=== PATIENT | female | born 1965 | race Two or more races ===

== ENCOUNTER 2018-01-27 15:54 | Emergency (ER) | payer MEDICAID ==
[~2018-01-27] VITALS: Ht 157.5 cm; Wt 81.6 kg
[2018-01-27 16:56] LABS: Basophils # (auto) 0.1 uL; Basophils % (auto) 0.9 % (0.0-2.0); Eosinophils # (auto) 0.1 uL; Hematocrit 38.8 % (36.0-46.0); Hemoglobin 13.3 g/dL (12.2-16.2); Lymphocytes # (auto) 1.9 uL; Lymphocytes % (auto) 32.8 % (10.0-50.0); Mean Corpuscular Hemoglobin 32.9 pg (28.0-32.0); Mean Corpuscular Hgb Conc. 34.2 g/dL (32.0-36.0); Mean Corpuscular Volume 96.2 fL (80.0-100.0); Monocytes # (auto) 0.3 uL; Monocytes % (auto) 5.6 % (0.0-12.0); Neutrophils # (auto) 3.4 uL; Neutrophils % (auto) 59.7 % (37.0-80.0); Nucleated Red Blood Cells % 0.1 %; Platelet Count (auto) 211 10^3/uL (140-450); Red Blood Cells 4.03 10^6/uL (4.0-5.20); Red Cell Distribution Width 13.3 % (11.8-14.3); White Blood Cell 5.8 10^3/uL (4.4-10.8)
[2018-01-27 17:00] LABS: Urine Bacteria NONE SEEN /hpf (None Seen); Urine Blood Negative /uL (Negative); Urine Mucus FEW (None Seen); Urine Specific Gravity 1.009 (1.001-1.035); Urine WBC 3 /hpf (0 - 5)
[2018-01-27 17:07] LABS: BUN/Creatinine Ratio 15.3; Calcium 8.7 mg/dL (8.5-10.1); Potassium 3.8 mmol/L (3.5-5.1)
[2018-01-27 17:09] LABS: Bilirubin, Total 0.7 mg/dL (0.2-1.0); Total Protein 8.1 g/dL (6.4-8.2)
[2018-01-27 18:28] LABS: Magnesium 2.2 mg/dL (1.6-2.6)
[2018-01-27 20:00] VITALS: BP 135/87
[2018-01-27] MEDS ORDERED: HYDROcodone-ACET 5/325MG TAB PO ONE (20:45)
== END 2018-01-27 20:45 | disposition home or self-care (01) ==
LOC: ER 15:58
DX: R07.9 Chest pain, unspecified (principal); R51 Headache; M79.89 Other specified soft tissue disorders
CPT/HCPCS: 36415; 70450; 71046; 80053; 81001; 83735; 84484; 85025; 85379; 93005; 93971; 94761

== ENCOUNTER 2020-02-29 01:29 | Emergency (ER) | payer MEDICAID ==
[~2020-02-29] VITALS: Ht 160 cm; Wt 86.2 kg
[2020-02-29 03:12] VITALS: BP 132/73
== END 2020-02-29 03:38 | disposition home or self-care (01) ==
LOC: EDBD 01:29 → ER 01:36
DX: I83.892 Varicose veins of left lower extremity with other complications (principal); I10 Essential (primary) hypertension

== ENCOUNTER 2021-02-22 15:29 | Emergency (ER) | payer MEDICAID ==
[~2021-02-22] VITALS: Ht 157.5 cm; Wt 90.7 kg
[2021-02-22 18:25] VITALS: BP 144/87
== END 2021-02-22 18:30 | disposition home or self-care (01) ==
LOC: ER 15:29
DX: I83.92 Asymptomatic varicose veins of left lower extremity (principal); I10 Essential (primary) hypertension

== ENCOUNTER 2021-11-13 20:02 | Emergency (ER) | payer MEDICAID ==
[~2021-11-13] VITALS: Ht 157.5 cm; Wt 81.6 kg
[2021-11-13 20:26] VITALS: BP 141/81
[2021-11-13] MEDS ORDERED: AMOX-277 PO (22:56)
[2021-11-13] MEDS ORDERED: ACETAMINOPHEN 325 MG TAB PO ONE (23:00)
[2021-11-13] MEDS ORDERED: TETANUS-DIPTH-ACEL PERTUSSIS 0.5ML SYR Tdap IM ONE (23:15)
== END 2021-11-13 23:16 | disposition home or self-care (01) ==
LOC: ER 20:04
DX: S81.831A Puncture wound without foreign body, right lower leg, initial encounter (principal); I10 Essential (primary) hypertension; W54.0XXA Bitten by dog, initial encounter; Y93.89 Activity, other specified; Y92.89 Other specified places as the place of occurrence of the external cause; Y99.8 Other external cause status
CPT/HCPCS: 90471; 90715

== ENCOUNTER 2023-06-21 09:28 | Emergency (ER) | payer MEDICAID ==
[~2023-06-21] VITALS: Ht 157.5 cm; Wt 92.9 kg
[~2023-06-21 09:28] MED LIST: AMOX875T4 PO
[2023-06-21 09:35] VITALS: BP 107/72; RESP 18; O2SAT 97
[2023-06-21 10:44] LABS: Basophils # (auto) 0 10 ^3/uL (0-0.2); Basophils % (auto) 0.9 % (0.0-2.0); Eosinophils # (auto) 0.1 10 ^3/uL (0-0.8); Eosinophils % (auto) 2.8 % (0.0-7.0); Hematocrit 37.6 % (36.0-46.0); Hemoglobin 12.4 g/dL (12.2-16.2); Lymphocytes # (auto) 1.7 10 ^3/uL (0.4-5.4); Lymphocytes % (auto) 42.1 % (10.0-50.0); Mean Corpuscular Hemoglobin 31.6 pg (28.0-32.0); Mean Corpuscular Volume 95.8 fL (80.0-100.0); Monocytes # (auto) 0.2 10 ^3/uL (0-1.3); Monocytes % (auto) 5.7 % (0.0-12.0); Neutrophils % (auto) 48.5 % (37.0-80.0); Red Blood Cells 3.92 10^6/uL (4.0-5.20); Red Cell Distribution Width 13.5 % (11.8-14.3); White Blood Cell 4.1 10^3/uL (4.4-10.8)
[2023-06-21] MEDS ORDERED: SODIUM CHLORIDE 0.9% 1,000 ML IV ONE (10:45)
[2023-06-21 10:58] LABS: INR 1.08 (0.9-1.15); Partial Thromboplastin Time 31.1 SEC (24.5-34.5); Prothrombin Time 11.3 sec (9.3-11.8)
[2023-06-21 11:12] LABS: Alanine Aminotransferase 22 U/L (7-40); Albumin 4.8 g/dL (3.2-4.8); Alkaline Phosphatase 78 U/L (46-116); Anion Gap 6 (5-15); Aspartate Aminotransferase 15 U/L (13-40); BUN/Creatinine Ratio 13.9 (10.0-20.0); Bilirubin, Total 0.8 mg/dL (0.2-1.0); Blood Urea Nitrogen 10 mg/dL (9-23); Calcium 9.7 mg/dL (8.5-10.1); Carbon Dioxide 28 mmol/L (20-30); Chloride 107 mmol/L (98-107); Glucose 98 mg/dL (74-106); Sodium 141 mmol/L (136-145); Total Protein 7.5 g/dL (5.7-8.2)
[2023-06-21 11:18] LABS: Urine Bacteria NONE SEEN /hpf (None Seen); Urine Blood Negative /uL (Negative); Urine Clarity Clear (Clear); Urine Color Yellow (Yellow); Urine Mucus FEW (None Seen); Urine Protein, UAD Negative (Negative); Urine Specific Gravity 1.017 (1.001-1.035); Urine Urobilinogen Normal (Negative); Urine WBC 1 /hpf (0 - 5)
[2023-06-21 11:20] VITALS: PULSE 68
[2023-06-21] MEDS ORDERED: HYDR-4902 PO (13:16)
== END 2023-06-21 14:15 | disposition home or self-care (01) ==
LOC: ER 09:28
DX: I70.90 Unspecified atherosclerosis (principal); R51.9 Headache, unspecified; E11.9 Type 2 diabetes mellitus without complications; I10 Essential (primary) hypertension; Z98.890 Other specified postprocedural states; Z86.718 Personal history of other venous thrombosis and embolism; Z86.711 Personal history of pulmonary embolism; Z86.2 Personal history of diseases of the blood and blood-forming organs and certain disorders involving the immune mechanism
CPT/HCPCS: 36415; 70450; 71046; 80053; 81001; 85025; 85379; 85610; 85730; 93005; 96360; 99285; J7030

== ENCOUNTER 2024-02-19 08:36 | Emergency (ER) | payer MEDICAID ==
[~2024-02-19 08:36] MED LIST changes: +HYDR-4902 PO
[2024-02-19 09:21] LABS: Urine Bacteria None Seen /hpf (None Seen)
[2024-02-19 09:28] VITALS: BP 114/79; PULSE 80; RESP 16; TEMP 97.7; O2SAT 97
[2024-02-19 10:17] LABS: Urine Blood 1+ /uL (Negative); Urine Clarity Ex.Turbid (Clear); Urine Color Yellow (Yellow); Urine Mucus FEW (None Seen); Urine Protein, UAD 1+ (Negative); Urine Specific Gravity 1.022 (1.001-1.035); Urine Urobilinogen 2 mg/dL (Negative); Urine WBC 1010 /hpf (0 - 5); Urine pH 5.5 (5.0-9.0)
[2024-02-19] MEDS ORDERED: PHEN-922 PO (10:35)
[2024-02-19] MEDS ORDERED: BACDST PO (10:35)
[2024-02-19] MEDS: cefTRIAXone SOD 1,000 MG VL IM ONE (10:35)
[2024-02-19] MEDS: PHENAZOPYRIDINE HCL 100 MG TAB PO ONE (10:35)
== END 2024-02-19 11:08 | disposition home or self-care (01) ==
LOC: ER 08:36
DX: N39.0 Urinary tract infection, site not specified (principal); E11.9 Type 2 diabetes mellitus without complications; I10 Essential (primary) hypertension
CPT/HCPCS: 81001; 96372; 99283; J0696

== ENCOUNTER 2025-03-19 23:14 | Inpatient (IN) | payer MEDICAID ==
[~2025-03-19] VITALS: Ht 157.5 cm; Wt 86.8 kg
[~2025-03-19 23:14] MED LIST changes: +BACDST PO; +PHEN-922 PO
[2025-03-20] VITALS (8 sets, daily range): BP systolic 116–144; BP diastolic 71–94; PULSE 63–75; RESP 13–20; TEMP 97.6–97.9; O2SAT 96–100
--- NOTE | 2025-03-20 01:06 | ED.PDOC ---
History of Present Illness HPI Comments 59 y/o obese F presents with c/c of nonradiating, RLQ abdominal pain. Patient endorses on 3x day history of pain, which has been, progressively, worsening since initial, unprovoked and atraumatic onset. No modifiers. No reported recent ailments, sick contacts, spoiled food consumption, or pertinent GI history. Significant history of and LLE chronic DVT secondary to varicose veins. No reported nausea, vomiting, diarrhea, constipation, or further associated symptoms. Chief Complaint: Abdominal Pain Time Seen by MD: 00:00 Primary Care Provider: JULIA Allergies: Coded Allergies: No Known Drug Allergy (Verified Allergy, Unknown, 01/27/18) Home Meds Active Scripts Phenazopyridine HCl (Phenazopyridine Hydrochlo) 200 Mg Tab, 200 MG PO TID, #6 TAB Prov:ARIANNE AREVALO 02/19/24 Sulfamethoxazole W/Trimethopri (Bactrim Ds Tablet) 1 Tab Tb, 1 TAB PO BID for 10 Days, #20 TAB Prov:ARIANNE AREVALO 02/19/24 Hydrocodone-Acetaminophen (Hydrocodone Bitartrate/AC 5-325 mg) 1 Tab Tab, 1 TAB PO BID for 5 Days, #10 TAB Prov:CHUCK YEH MD 06/21/23 Amoxicillin & Pot Clavulanate (Amoxicillin/Potassium Cla) 875 Mg Tab, 1 TAB PO BID for 7 Days, #14 TAB 0 Refills Prov:GOMEZ HIGGINS 11/13/21 Mode of Arrival: Ambulatory Past Medical History PAST MEDICAL HISTORY: DM, HTN 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 Family History Family History: Reviewed,noncontributory to illness, No family hx of Cancer, No family hx of DM, No family hx of Heart blade, No family hx of HTN, No family hx ofKidney blade, No family hx of Liver blade, No family hx of Lung blade, No family hx of Stroke Social History Smoker: Non-Smoker Alcohol: Denies ETOH Use Drugs: Denies Drug Use Lives In: Home All Other Systems: Reviewed and Negative (Comprehensive systems review obtained and negative except for what is stated in the HPI.) Physical Exam General Appearance: Moderate Distress HEENT: Normal ENT Inspection, Pharynx Normal, TMs Normal Neck: Full Range of Motion, Non-Tender, Normal, Normal Inspection Respiratory: Chest Non-Tender, Lungs Clear, No Accessory Muscle Use, No Respiratory Distress, Normal Breath Sounds Cardiovascular: No Edema, No JVD, No Murmur, No Gallop, Normal Peripheral Pulses, Regular Rate/Rhythm Breast Exam: Deferred Gastrointestinal: No Organomegaly, Non Tender, No Pulsatile Mass, Normal Bowel Sounds, Soft Genitalia: Deferred Pelvic: Deferred Rectal: Deferred Extremities: No calf tenderness, Normal capillary refill, Normal inspection, Normal range of motion, Non-tender, No pedal edema Musculoskeletal : Apperance: Normal Neurologic: Alert, die set up worker II-XII nml as Tested, No Motor Deficits, Normal Affect, Normal Mood, No Sensory Deficits Cerebellar Function: NOT DONE Reflexes: NOT DONE Skin: Dry, Normal Color, Warm Peripheral Pulses: 3+ Radial (R), 3+ Radial (L) Lymphatic: No Adenopathy Was a procedure done? Was a procedure done?: No Differential Dx Considerations may include: viral syndrome, gastritis, gastroenteritis, GERD, cholelithiasis, cholecystitis, appendicitis, diverticulitis, PID, ovarian cyst/torsion, among others X-Ray, Labs, Meds, VS Vital Signs Date Time Temp Pulse Resp B/P (MAP) Pulse Ox O2 Delivery O2 Flow Rate FiO2 03/20/25 02:16 75 20 96 Room Air* 0 21 03/20/25 02:16 98.1 75 20 144/78 (100) 96 98.1 03/19/25 23:18 97.9 87 18 155/93 98 97.9 Lab Test 03/20/25 00:41 Range/Units White Blood Count 6.6 4.4-10.8 10^3/uL Red Blood Count 3.88 L 4.0-5.20 10^6/uL Hemoglobin 12.4 12.2-16.2 g/dL Hematocrit 36.7 36.0-46.0 % Mean Corpuscular Volume 94.6 80.0-100.0 fL Mean Corpuscular Hemoglobin 32.0 28.0-32.0 pg Mean Corpuscular Hemoglobin Concent 33.9 32.0-36.0 g/dL Red Cell Distribution Width 13.1 11.8-14.3 % Platelet Count 238 140-450 10^3/uL Mean Platelet Volume 7.6 6.9-10.8 fL Neutrophils (%) (Auto) 46.0 37.0-80.0 % Lymphocytes (%) (Auto) 44.3 10.0-50.0 % Monocytes (%) (Auto) 6.6 0.0-12.0 % Eosinophils (%) (Auto) 2.4 0.0-7.0 % Basophils (%) (Auto) 0.7 0.0-2.0 % Neutrophils # (Auto) 3.0 1.6-8.6 10 ^3/uL Lymphocytes # (Auto) 2.9 0.4-5.4 10 ^3/uL Monocytes # (Auto) 0.4 0-1.3 10 ^3/uL Eosinophils # (Auto) 0.2 0-0.8 10 ^3/uL Basophils # (Auto) 0 0-0.2 10 ^3/uL Nucleated Red Blood Cells 0.0 % Sodium Level 142 136-145 mmol/L Potassium Level 4.3 3.5-5.1 mmol/L Chloride Level 104 98-107 mmol/L Carbon Dioxide Level 27 20-31 mmol/L Anion Gap 11 5-15 Blood Urea Nitrogen 15 9-23 mg/dL Creatinine 0.66 0.550-1.02 mg/dL Glomerular Filtration Rate Calc 100 >90 mL/min BUN/Creatinine Ratio 22.7 H 10.0-20.0 Serum Glucose 95 74-106 mg/dL Calcium Level 9.7 8.7-10.4 mg/dL Total Bilirubin 0.5 0.2-1.0 mg/dL Aspartate Amino Transferase (AST) 18 13-40 U/L Alanine Aminotransferase (ALT) 16 7-40 U/L Alkaline Phosphatase 82 46-116 U/L Total Protein 7.7 5.7-8.2 g/dL Albumin 4.7 3.2-4.8 g/dL Patient alert. Came in because of abdominal pain. Vitals stable. Answering questions. Continues to have abdominal pain. Establish intravenous access. Was given fluids. Blood pressure slightly elevated. Explained to the patient. Continue to monitor. Time of 1ST Reevaluation: 00:30 Reevaluation 1ST: Unchanged Patient Education/Counseling: Diagnosis, Treatment Family Education/Counseling: No Family Present SEPSIS Sepsis Screen Date sepsis recognized/suspect: Mar 19, 2025 Time Sepsis recognized/suspect: 2321 Recent Procedure: No On Antibiotic Therapy: No Respiratory Rate >20: No Heart Rate >90: No Temp<36 C (96.8 F) or >38.3 C: No SBP <90 or MAP <65 mmHG: No New Acute Mental Status Change: No Is the patient on CPAP, BIPAP,: No Physician Orders Urinalysis (03/20/25 00:01) Ct Ab Pel Wo Con-No Oral Or Iv (03/20/25 00:01) Vital Signs Date Time Temp Pulse Resp B/P (MAP) Pulse Ox O2 Delivery O2 Flow Rate FiO2 03/20/25 02:16 75 20 96 Room Air* 0 21 03/20/25 02:16 98.1 75 20 144/78 (100) 96 98.1 03/19/25 23:18 97.9 87 18 155/93 98 97.9 Laboratory Tests Test 03/20/25 00:41 White Blood Count 6.6 10^3/uL (4.4-10.8) Departure 1 Departure Time of Disposition: 01:13 Impression: Primary Impression: Acute abdominal pain Additional Impression: Kidney stone Disposition: ADMITTED INPATIENT Admit to: Med Surg Condition: Guarded Critical Care Note Critical Care Time?: No Stability Stability form required: No Heart Score Heart Score: Heart Score Response (Comments) Value History N/A 0 EKG N/A 0 Age N/A 0 Risk Factors N/A 0 Troponin N/A 0 Total 0 I personally scribed for AUBRIE SHAFER MD ([email or web address]) on 03/20/25 at 01:06. Electronically submitted by John Lujan ([email or web address]). AUBRIE SHAFER MD Mar 20, 2025 01:06
[2025-03-20 01:11] LABS: Hematocrit 36.7 % (36.0-46.0); Hemoglobin 12.4 g/dL (12.2-16.2); Mean Corpuscular Hemoglobin 32.0 pg (28.0-32.0); Mean Corpuscular Volume 94.6 fL (80.0-100.0); Nucleated Red Blood Cells % 0.0 %
[2025-03-20 01:29] LABS: Alanine Aminotransferase 16 U/L (7-40); Albumin 4.7 g/dL (3.2-4.8); Alkaline Phosphatase 82 U/L (46-116); Anion Gap 11 (5-15); BUN/Creatinine Ratio 22.7 (10.0-20.0); Blood Urea Nitrogen 15 mg/dL (9-23); Calcium 9.7 mg/dL (8.7-10.4); Carbon Dioxide 27 mmol/L (20-31); Chloride 104 mmol/L (98-107); Glucose 95 mg/dL (74-106); Potassium 4.3 mmol/L (3.5-5.1); Sodium 142 mmol/L (136-145); Total Protein 7.7 g/dL (5.7-8.2)
[2025-03-20 01:30] LABS: Bilirubin, Total 0.5 mg/dL (0.2-1.0)
--- NOTE | 2025-03-20 02:25 | DVH ---
Exam: CT CT AB PEL WO CON-NO ORAL OR IV History: colitis Comparison Study: None Technique: Multidetector spiral CT of the abdomen was performed from lung bases to pubic symphysis. I maging was performed without IV contrast. Axial, coronal and sagittal multiplanar reformats were obta ined from the axial data set by the technologist. Radiation Dose : 1. Abdomen/Pelvis: CTDIvol 15.0 mGy, DLP 888.4 mGy*cm. Findings: Evaluation of solid organs is limited due to lack of intravenous contrast use. Lower Chest: No acute findings. Liver: Unremarkable. Gallbladder and Biliary Tree: Unremarkable Pancreas: Unremarkable. Spleen: Unremarkable. Adrenal Glands: Unremarkable. Kidneys/Ureters: No obstruction. Punctate bilateral upper renal pole calcifications. Bladder: No wall thickening. Trace intraluminal gas. Pelvic Organs: Unremarkable Bowel: Normal caliber without wall thickening. No evidence of appendicitis. Descending and sigmoid co lonic diverticulosis without diverticulitis. Vasculature: Mild atherosclerosis. Lymphadenopathy: No obvious adenopathy. Peritoneum: No ascites, free air, or fluid collection. Abdominal Wall: Periumbilical subcutaneous stranding likely represents medication injections. Promine nt superficial varices of the lower pelvic wall. Musculoskeletal: No acute findings. Mild spondylosis. IMPRESSION: 1. No acute abdominopelvic abnormality. 2. Colonic diverticulosis without diverticulitis. 3. Nonobstructing renal calcifications. Radiation optimization: All CT scans at this facility use at least one of these dose optimization kishor hniques: automated exposure control mA and/or kV adjustment per patient size (includes targeted exam s where dose is matched to clinical indication) or iterative reconstruction.
[2025-03-20] MEDS ORDERED: ONDANSETRON HCL 4 MG/2 ML VIAL IV PRN (05:15)
[2025-03-20] MEDS ORDERED: ACETAMINOPHEN 325 MG TAB PO PRN (05:15)
--- NOTE | 2025-03-20 05:38 | DVHHP2 ---
History of Present Illness Reason for Visit: Acute abdominal pain History of Present Illness The patient is a 59-year-old female morbidly obese with past medical history of diabetes mellitus and hypertension who presented to [facility] ED with complaint of abdominal pain. Patient reports she has been experiencing right lower quadrant abdominal pain for the past 3 days, rating 7/10 numeric scale, nonradiating, getting worse that prompted this visit. Patient was seen and evaluated in the ED, laboratory data shows WBC 6.6, platelets 238, sodium 142, potassium 4.3, BUN 15, creatinine 0.66, glucose 95, calcium 9.7, blood pressure 148/78, heart rate 76, temperature 98.3 F, O2 saturation 99% on room air. Abdomen/pelvis CT showed no acute abdominopelvic abnormality, colonic diverticulosis without diverticulitis. Please see medication orders section in the computer. On my assessment, patient denies abdominal pain at this moment, no diarrhea, nausea, vomiting, no fever, no chills. Patient was admitted for further evaluation and medical management. Past Medical History DM, HTN Past Surgical History Family History Reviewed, noncontributory to the management of this case. Past Social History The patient lives at home, denies smoking, alcohol or illicit drugs abuse. Review of Systems Constitutional: No: Fever, Chills, Sweats, Weakness, Malaise, Other Eyes: No: Pain, Vision change, Conjunctivae inflammation, Eyelid inflammation, Other, Redness ENT: No: Ear pain, Ear discharge, Nose pain, Nose discharge, Nose congestion, Mouth pain, Mouth swelling, Throat pain, Throat swelling, Other Respiratory: No: Cough, Dry, Shortness of breath, SOB with excertion, Wheezing, Hemoptysis, Pleuritic Pain, Sputum, Wheezing, Other Cardiovascular: No: Chest Pain, Palpitations, Orthopnea, Paroxysmal Noc. Dyspnea, Edema, Lt Headedness, Other Gastrointestinal: Abdominal Pain; No: Nausea, Vomiting, Diarrhea, Constipation, Melena, Hematochezia, Other Genitourinary: No Dysuria, No Frequency, No Incontinence, No Hematuria, No Retention, No Other Musculoskeletal: No: other, neck pain, shoulder pain, arm pain, back pain, hand pain, leg pain, foot pain Skin: No: Rash, Lesions, Jaundice, Bruising, Other Neurological: No: Weakness, Numbness, Incoordination, Change in speech, Confusion, Seizures, Other Allergies: Coded Allergies: No Known Drug Allergy (Verified Allergy, Unknown, 01/27/18) Medications Current Medications Medications Dose Ordered Sig/Rob Route Start Time Stop Time Status Last Admin Dose Admin Sodium Chloride 10 ml Q8HR IV 03/20/25 06:00 Acetaminophen/ Hydrocodone Bitart 1 tab Q4HP PRN PO 03/20/25 05:15 Ondansetron HCl 4 mg Q4HP PRN IV 03/20/25 05:15 Docusate Sodium 100 mg BIDPRN PRN PO 03/20/25 05:15 Acetaminophen 650 mg Q6HP PRN PO 03/20/25 05:15 Nitroglycerin 0.4 mg Q5MINP PRN SL 03/20/25 05:45 UNV Morphine Sulfate 2 mg Q30M PRN IV 03/20/25 05:45 UNV Exam Vital Signs Vital Signs Date Time Temp Pulse Resp B/P (MAP) Pulse Ox O2 Delivery O2 Flow Rate FiO2 03/20/25 05:00 98.3 76 20 140/90 (107) 99 98.3 03/20/25 05:00 Room Air 03/20/25 02:16 0 21 General Appearance: Alert, Oriented X3, Cooperative, No acute distress HEENT: Atraumatic, PERRLA, EOMI, Mucous membr. moist/pink Respiratory: Normal air movement Cardiovascular: Regular rate, Normal S1, Normal S2, No murmurs Abdominal: Normal bowel sounds, Soft, No hepatospenomegaly, No masses, Other (Reports tenderness) Extremities: No clubbing, No cyanosis, No edema, Normal pulses, No tenderness/swelling Skin: No rashes, No breakdown, No significant lesion Neuro: Normal gait, Normal speech, Strength at 5/5 X4 ext, Normal tone, Sensation intact, Cranial nerves 3-12 NL, Reflexes 2+ Psych/Mental Status: Mental status NL, Mood NL Labs/Xrays Labs Test 03/20/25 00:41 Range/Units White Blood Count 6.6 4.4-10.8 10^3/uL Red Blood Count 3.88 L 4.0-5.20 10^6/uL Hemoglobin 12.4 12.2-16.2 g/dL Hematocrit 36.7 36.0-46.0 % Mean Corpuscular Volume 94.6 80.0-100.0 fL Mean Corpuscular Hemoglobin 32.0 28.0-32.0 pg Mean Corpuscular Hemoglobin Concent 33.9 32.0-36.0 g/dL Red Cell Distribution Width 13.1 11.8-14.3 % Platelet Count 238 140-450 10^3/uL Mean Platelet Volume 7.6 6.9-10.8 fL Neutrophils (%) (Auto) 46.0 37.0-80.0 % Lymphocytes (%) (Auto) 44.3 10.0-50.0 % Monocytes (%) (Auto) 6.6 0.0-12.0 % Eosinophils (%) (Auto) 2.4 0.0-7.0 % Basophils (%) (Auto) 0.7 0.0-2.0 % Neutrophils # (Auto) 3.0 1.6-8.6 10 ^3/uL Lymphocytes # (Auto) 2.9 0.4-5.4 10 ^3/uL Monocytes # (Auto) 0.4 0-1.3 10 ^3/uL Eosinophils # (Auto) 0.2 0-0.8 10 ^3/uL Basophils # (Auto) 0 0-0.2 10 ^3/uL Nucleated Red Blood Cells 0.0 % Sodium Level 142 136-145 mmol/L Potassium Level 4.3 3.5-5.1 mmol/L Chloride Level 104 98-107 mmol/L Carbon Dioxide Level 27 20-31 mmol/L Anion Gap 11 5-15 Blood Urea Nitrogen 15 9-23 mg/dL Creatinine 0.66 0.550-1.02 mg/dL Glomerular Filtration Rate Calc 100 >90 mL/min BUN/Creatinine Ratio 22.7 H 10.0-20.0 Serum Glucose 95 74-106 mg/dL Calcium Level 9.7 8.7-10.4 mg/dL Total Bilirubin 0.5 0.2-1.0 mg/dL Aspartate Amino Transferase (AST) 18 13-40 U/L Alanine Aminotransferase (ALT) 16 7-40 U/L Alkaline Phosphatase 82 46-116 U/L Total Protein 7.7 5.7-8.2 g/dL Albumin 4.7 3.2-4.8 g/dL PATIENT: KAISER VAZQUEZ ACCT: [id number] UNIT: [id number] : 1965 LOC: ER ROOM / BED: / AGE / SEX: 59 / F ADM STATUS: REG ER SERVICE 0001 ORDERING PHYSICIAN: AUBRIE SHAFER MD PROCEDURE(s): ABPL - CT AB PEL WO CON-NO ORAL OR IV REASON: colitis ORDER NUMBER(s): [id number], ACCESSION NUMBER(s): [id number] Exam: CT CT AB PEL WO CON-NO ORAL OR IV History: colitis Comparison Study: None Technique: Multidetector spiral CT of the abdomen was performed from lung bases to pubic symphysis. Imaging was performed without IV contrast. Axial, coronal and sagittal multiplanar reformats were obtained from the axial data set by the technologist. Radiation Dose: 1. Abdomen/Pelvis: CTDIvol 15.0 mGy, DLP 888.4 mGy*cm. Findings: Evaluation of solid organs is limited due to lack of intravenous contrast use. Lower Chest: No acute findings. Liver: Unremarkable. Gallbladder and Biliary Tree: Unremarkable Pancreas: Unremarkable. Spleen: Unremarkable. Adrenal Glands: Unremarkable. Kidneys/Ureters: No obstruction. Punctate bilateral upper renal pole calcifications. Bladder: No wall thickening. Trace intraluminal gas. Pelvic Organs: Unremarkable Bowel: Normal caliber without wall thickening. No evidence of appendicitis. Descending and sigmoid colonic diverticulosis without diverticulitis. Vasculature: Mild atherosclerosis. Lymphadenopathy: No obvious adenopathy. Peritoneum: No ascites, free air, or fluid collection. Abdominal Wall: Periumbilical subcutaneous stranding likely represents medication injections. Prominent superficial varices of the lower pelvic wall. Musculoskeletal: No acute findings. Mild spondylosis. IMPRESSION: 1. No acute abdominopelvic abnormality. 2. Colonic diverticulosis without diverticulitis. 3. Nonobstructing renal calcifications. SEPSIS Sepsis Screen Date sepsis recognized/suspect: Mar 20, 2025 Time Sepsis recognized/suspect: 219 Recent Procedure: No On Antibiotic Therapy: No Respiratory Rate >20: No Heart Rate >90: No Temp<36 C (96.8 F) or >38.3 C: No SBP <90 or MAP <65 mmHG: No New Acute Mental Status Change: No Is the patient on CPAP, BIPAP,: No Physician Orders Urinalysis (03/20/25 00:01) Ct Ab Pel Wo Con-No Oral Or Iv (03/20/25 00:01) Complete Blood Count (03/20/25 05:08) Comprehensive Metabolic Panel (03/20/25 05:08) Allergies (03/20/25 05:08) Code Status (03/20/25 05:08) Sodium Chloride Lock (Saline Lock Ns) (03/20/25 06:00) Oxygen Per Hour (03/20/25 05:08) Hydrocodone-Acet 5/325mg Tab ([place] (03/20/25 05:15) Ondansetron Hcl (Zofran) (03/20/25 05:15) Docusate Sodium Capsule (Colace Capsule) (03/20/25 05:15) Complete Blood Count (03/21/25 04:00) Comprehensive Metabolic Panel (03/21/25 04:00) Condition: Serious (03/20/25 05:08) Acetaminophen Tablet (Tylenol Tablet) (03/20/25 05:15) Clear Liq Diet (03/20/25 Breakfast) Bedrest With Bathroom Privileg (03/20/25 05:08) Sequential Compression Device (03/20/25 ) Admit (03/20/25 05:35) Nitroglycerin Sublingual (Ntrostat Subli (03/20/25 05:45) Morphine Sulfate Injection (03/20/25 05:45) Notify Of Changes From Base (03/20/25 05:35) Emergency Dysrhythmia Protocol (03/20/25 05:35) Oxygen By Nasal Cannula (03/20/25 05:35) Vital Signs Date Time Temp Pulse Resp B/P (MAP) Pulse Ox O2 Delivery O2 Flow Rate FiO2 03/20/25 05:00 98.3 76 20 140/90 (107) 99 98.3 03/20/25 05:00 71 20 99 Room Air 03/20/25 02:16 75 20 96 Room Air* 0 21 03/20/25 02:16 98.1 75 20 144/78 (100) 96 98.1 03/19/25 23:18 97.9 87 18 155/93 98 97.9 Laboratory Tests Test 03/20/25 00:41 White Blood Count 6.6 10^3/uL (4.4-10.8) Assessment/Plan Assessment/Plan Acute abdominal pain Kidney stone Plan 1. Admit to med surge unit 2. Breathing treatment 3. Pain control management 4. Management of fluids and electrolytes 5. Consultation for hospitalist 6. Diagnostic tests abdomen/pelvis CT 7. DVT prophylaxis on SCDs 8. Repeat labs CBC, CMP in a.m. 9. Continue with current medical management 10. Treatment plan discussed with patient and RN. Patient verbalized understanding. Plan discussed with: Patient, Other (RN) My Orders Orders - NARINDER IRELAND DNP Procedure Category Date Status Time Complete Blood Count LAB 03/20/25 Logged 05:08 Comprehensive LAB 03/20/25 Logged Metabolic Panel 05:08 Allergies SERA 03/20/25 In Process 05:08 Code Status CODE 03/20/25 Transmitted 05:08 Sodium Chloride Lock PHA 03/20/25 In Process (Saline Lock Ns) 06:00 Oxygen Per Hour RT 03/20/25 Transmitted 05:08 Hydrocodone-Acet PHA 03/20/25 In Process 5/325mg Tab ([place]ova 05:15 Ondansetron Hcl PHA 03/20/25 In Process (Zofran) 05:15 Docusate Sodium PHA 03/20/25 In Process Capsule (Colace 05:15 Complete Blood Count LAB 03/21/25 Verified 04:00 Comprehensive LAB 03/21/25 Verified Metabolic Panel 04:00 Condition: Serious SERA 03/20/25 In Process 05:08 Acetaminophen Tablet PHA 03/20/25 In Process (Tylenol Tablet) 05:15 Clear Liq Diet DIET 03/20/25 Transmitted Breakfast Bedrest With Bathroom SERA 03/20/25 In Process Privileg 05:08 Sequential SERA 03/20/25 In Process Compression Device Admit ADMIT 03/20/25 Transmitted 05:35 Nitroglycerin PHA 03/20/25 Transmitted Sublingual (Ntrostat 05:45 Morphine Sulfate PHA 03/20/25 Transmitted Injection 05:45 Notify Md Of Changes SERA 03/20/25 Transmitted From Base 05:35 Emergency Dysrhythmia SERA 03/20/25 Transmitted Protocol 05:35 Oxygen By Nasal RT 03/20/25 Transmitted Cannula 05:35 Problem List: (1) Acute abdominal pain (2) Kidney stone Date of Service: Mar 20, 2025 Billing Provider: NARINDER IRELAND DNP Common Visit Codes: [id number] INP/OBS CARE (HIGH) NARINDER IRELAND DNP Mar 20, 2025 05:38
[2025-03-20] MEDS ORDERED: NITROGLYCERIN 0.4 MG SL TAB SL PRN (05:45)
[2025-03-20] MEDS ORDERED: MORPHINE SULFATE INJ 2 MG/ml SYRG IV PRN (05:45)
[2025-03-20 05:59] LABS: Hematocrit 38.0 % (36.0-46.0); Hemoglobin 13.0 g/dL (12.2-16.2); Mean Corpuscular Hemoglobin 32.3 pg (28.0-32.0); Mean Corpuscular Volume 94.7 fL (80.0-100.0); Nucleated Red Blood Cells % 0.0 %
[2025-03-20] MEDS: SODIUM CHLOR 0.9% PF (SALINE LOCK) 10ML VIAL/SYR IV SCH (06:02)
[2025-03-20 06:12] LABS: Alanine Aminotransferase 17 U/L (7-40); Alkaline Phosphatase 87 U/L (46-116); Anion Gap 10 (5-15); Blood Urea Nitrogen 13 mg/dL (9-23); Calcium 9.6 mg/dL (8.7-10.4); Carbon Dioxide 28 mmol/L (20-31); Chloride 104 mmol/L (98-107); Glucose 99 mg/dL (74-106); Potassium 3.8 mmol/L (3.5-5.1); Sodium 142 mmol/L (136-145); Total Protein 8.2 g/dL (5.7-8.2)
[2025-03-20 06:13] LABS: BUN/Creatinine Ratio 20.6 (10.0-20.0); Bilirubin, Total 0.9 mg/dL (0.2-1.0)
[2025-03-20 06:17] LABS: Albumin 5.0 g/dL (3.2-4.8)
[2025-03-20 07:15] LABS: Urine Protein, UAD Negative (Negative)
[2025-03-20] MEDS: HYDROcodone-ACET 5/325MG TAB PO PRN (09:05)
[2025-03-20] MEDS ORDERED: APIX5TAB PO (10:44)
[2025-03-20] MEDS ORDERED: ATOR40TA52 PO (10:44)
[2025-03-20] MEDS ORDERED: METF-371 PO (10:44)
--- NOTE | 2025-03-20 12:10 | DVHPN2 ---
Subjective Patient continues to have right lower quadrant pain Reviewed: Care Plan, H&P, Labs, Medications Changes from previous H/P or p: No Changes General: Per HPI Objective Vitals Vital Signs Date Time Temp Pulse Resp B/P (MAP) Pulse Ox O2 Delivery O2 Flow Rate FiO2 03/20/25 08:51 97.6 74 18 134/79 (97) 98 97.6 03/20/25 08:05 Room Air* 0 21 General Appearance: Alert, Oriented X3, Cooperative, mild distress HEENT: Atraumatic, PERRLA Cardiovascular: Normal S1, Normal S2 Back: Flank Tenderness, Midline Tenderness Musculoskeletal: Normal sensory function, Normal motor function Neuro: Normal gait, Normal speech Skin: Dry, Intact Psych/Mental Status: Mental status NL, Mood NL Medications Current Medications Medications Dose Ordered Sig/Rob Route Start Time Stop Time Status Last Admin Dose Admin Sodium Chloride 10 ml Q8HR IV 03/20/25 06:00 03/20/25 06:02 10 ML Acetaminophen/ Hydrocodone Bitart 1 tab Q4HP PRN PO 03/20/25 05:15 03/20/25 09:05 1 TAB Ondansetron HCl 4 mg Q4HP PRN IV 03/20/25 05:15 Docusate Sodium 100 mg BIDPRN PRN PO 03/20/25 05:15 Acetaminophen 650 mg Q6HP PRN PO 03/20/25 05:15 Nitroglycerin 0.4 mg Q5MINP PRN SL 03/20/25 05:45 Morphine Sulfate 2 mg Q30M PRN IV 03/20/25 05:45 Laboratory Results Laboratory Tests 03/20/25 05:32 Chemistry Test 03/20/25 00:41 03/20/25 05:32 Albumin 4.7 g/dL (3.2-4.8) 5.0 g/dL (3.2-4.8) H Calcium Level 9.7 mg/dL (8.7-10.4) 9.6 mg/dL (8.7-10.4) Total Protein 7.7 g/dL (5.7-8.2) 8.2 g/dL (5.7-8.2) LFT Test 03/20/25 00:41 03/20/25 05:32 Alanine Aminotransferase (ALT) 16 U/L (7-40) 17 U/L (7-40) Alkaline Phosphatase 82 U/L (46-116) 87 U/L (46-116) Aspartate Amino Transferase (AST) 18 U/L (13-40) 17 U/L (13-40) Total Bilirubin 0.5 mg/dL (0.2-1.0) 0.9 mg/dL (0.2-1.0) Urinalysis Test 03/20/25 05:15 Urine Color Light-yellow (Yellow) Urine Clarity Clear (Clear) Urine pH 6.0 (5.0-9.0) Urine Specific [place] 1.013 (1.001-1.035) Urine Protein Negative (Negative) Urine Ketones Negative (Negative) Urine Blood Negative /uL (Negative) Urine Nitrite Negative (Negative) Urine Bilirubin Negative (Negative) Urine Urobilinogen Normal mg/dL (Negative) Urine Leukocyte Esterase Negative /uL (Negative) Urine RBC <1 /hpf (0 - 4) Urine Microscopic WBC < 1 /HPF (0-5) Urine Squamous Epithelial Cells Few /hpf (<5) Urine Bacteria None seen /hpf (None Seen) Urine Glucose Normal mg/dL (Normal) Labs and/or images reviewed: Labs reviewed by me, Image(s) reviewed by me Assessment/Plan Assessment/Plan Impression: -probable gastroenteritis -nephrolithiasis, nonobstructive -obesity -primary hypertension -diabetes mellitus Plan: -IV fluids -start antibiotic therapy with Flagyl -regular insulin sliding scale -pain management -reassess for discharge in a.m. Total time spent with patient discussing and formulating plan of care: 35 minutes. This medical document was created using an electronic medical record system with [employer] dictation system. Although this document has been carefully reviewed, there may still be some phonetic and typographical errors. These areas are purely typographical due to imperfections of the software programs, and do not reflect any compromise in the patient's medical care. Plan discussed with: Patient, Other (Rn) My Orders Orders - WILSON GOODEN NP Procedure Category Date Status Time NS PHA 03/20/25 Verified 12:15 Metronidazole Ivpb PHA 03/20/25 Verified Flagyl 14:00 Date of Service: Mar 20, 2025 Billing Provider: WILSON GOODEN NP Common Visit Codes: [id number] INP/OBS CARE(HIGH) WILSON GOODEN NP Mar 20, 2025 12:09
[2025-03-20] MEDS ORDERED: DEXTROSE (50%) 50ML SYRG IV PRN (12:15)
[2025-03-20] MEDS: SODIUM CHLORIDE 0.9% 1,000 ML IV SCH (12:34)
[2025-03-20] MEDS: InsuLIN REG 1unit/0.01ml Soln (100units/ml) SC SCH (17:00)
[2025-03-20] MEDS: ACCU-CHEK COMFORT CURVE STRIP VI SCH (17:05)
[2025-03-21] VITALS (8 sets, daily range): BP systolic 120–141; BP diastolic 82–94; PULSE 59–75; RESP 15–18; TEMP 97.6–98.5; O2SAT 96–99
[2025-03-21 08:01] LABS: Hematocrit 38.2 % (36.0-46.0); Hemoglobin 13.0 g/dL (12.2-16.2); Mean Corpuscular Hemoglobin 32.6 pg (28.0-32.0); Mean Corpuscular Volume 95.8 fL (80.0-100.0); Nucleated Red Blood Cells % 0.2 %
[2025-03-21 08:05] LABS: Alanine Aminotransferase 10 U/L (7-40); Alkaline Phosphatase 79 U/L (46-116); Anion Gap 11 (5-15); BUN/Creatinine Ratio 10.3 (10.0-20.0); Calcium 9.2 mg/dL (8.7-10.4); Carbon Dioxide 24 mmol/L (20-31); Chloride 106 mmol/L (98-107); Glucose 86 mg/dL (74-106); Potassium 4.1 mmol/L (3.5-5.1); Sodium 141 mmol/L (136-145); Total Protein 7.4 g/dL (5.7-8.2)
[2025-03-21 08:06] LABS: Albumin 4.4 g/dL (3.2-4.8); Bilirubin, Total 1.5 mg/dL (0.2-1.0); Blood Urea Nitrogen 9 mg/dL (9-23)
--- NOTE | 2025-03-21 13:28 | DVHPN2 ---
Subjective Patient continues to have right lower quadrant pain Reviewed: Care Plan, H&P, Labs, Medications Changes from previous H/P or p: No Changes General: Per HPI Eyes: No Pain, No Vision change, No Conjunctivae inflammation, No Eyelid inflammation, No Other, No Redness ENT: No Ear pain, No Ear discharge, No Nose pain, No Nose discharge, No Nose congestion, No Mouth pain, No Mouth swelling, No Throat pain, No Throat swelling, No Other Cardiovascular: No Chest Pain, No Palpitations, No Orthopnea, No Paroxysmal Noc. Dyspnea, No Edema, No Lt Headedness, No Other Respiratory: No Cough, No Dry, No Shortness of breath, No SOB with excertion, No Wheezing, No Hemoptysis, No Pleuritic Pain, No Sputum, No Other Gastrointestinal: No Nausea, No Vomiting; Abdominal Pain; No Diarrhea, No Constipation, No Melena, No Hematochezia, No Other Genitourinary: No Dysuria, No Frequency, No Incontinence, No Hematuria, No Retention, No Other Musculoskeletal: No other, No neck pain, No shoulder pain, No arm pain, No back pain, No hand pain, No leg pain, No foot pain Skin: No Rash, No Lesions, No Jaundice, No Bruising, No Other Objective Vitals Vital Signs Date Time Temp Pulse Resp B/P (MAP) Pulse Ox O2 Delivery O2 Flow Rate FiO2 03/21/25 12:48 98.4 59 16 140/94 (109) 99 98.4 03/21/25 07:30 Room Air* 0 21 Intake/Output Intake and Output 03/21/25 07:00 Intake Total 1450 ml Balance 1450 ml Intake Oral 1150 ml IV Total 300 ml # Voids 4 General Appearance: Alert, Oriented X3, Cooperative, mild distress HEENT: Atraumatic, PERRLA Cardiovascular: Normal S1, Normal S2 Abdomen: Normal bowel sounds, Soft, Other (Right lower Quadrant pain) Back: Flank Tenderness, Midline Tenderness Musculoskeletal: Normal sensory function, Normal motor function Neuro: Normal gait, Normal speech Skin: Dry, Intact Psych/Mental Status: Mental status NL, Mood NL Medications Current Medications Medications Dose Ordered Sig/Rob Route Start Time Stop Time Status Last Admin Dose Admin Sodium Chloride 10 ml Q8HR IV 03/20/25 06:00 03/21/25 05:35 10 ML Acetaminophen/ Hydrocodone Bitart 1 tab Q4HP PRN PO 03/20/25 05:15 03/21/25 11:29 1 TAB Ondansetron HCl 4 mg Q4HP PRN IV 03/20/25 05:15 Docusate Sodium 100 mg BIDPRN PRN PO 03/20/25 05:15 Acetaminophen 650 mg Q6HP PRN PO 03/20/25 05:15 Nitroglycerin 0.4 mg Q5MINP PRN SL 03/20/25 05:45 Morphine Sulfate 2 mg Q30M PRN IV 03/20/25 05:45 Sodium Chloride 1,000 ml @ 75 mls/hr [id number] IV 03/20/25 12:15 03/20/25 12:34 75 MLS/HR Metronidazole 100 ml @ 100 mls/hr Q8HR IV 03/20/25 14:00 03/21/25 05:35 100 MLS/HR Diagnostic Test (Pha) 1 strip ACHS 03/20/25 17:00 03/21/25 06:25 1 STRIP Insulin Human Regular ACHS SC 03/20/25 17:00 Dextrose 50 ml UD PRN IV 03/20/25 12:15 Laboratory Results Laboratory Tests 03/21/25 06:26 Chemistry Test 03/21/25 06:26 Albumin 4.4 g/dL (3.2-4.8) Calcium Level 9.2 mg/dL (8.7-10.4) Total Protein 7.4 g/dL (5.7-8.2) LFT Test 03/21/25 06:26 Alanine Aminotransferase (ALT) 10 U/L (7-40) Alkaline Phosphatase 79 U/L (46-116) Aspartate Amino Transferase (AST) 26 U/L (13-40) Total Bilirubin 1.5 mg/dL (0.2-1.0) H Urinalysis Test 03/20/25 05:15 Urine Color Light-yellow (Yellow) Urine Clarity Clear (Clear) Urine pH 6.0 (5.0-9.0) Urine Specific [place] 1.013 (1.001-1.035) Urine Protein Negative (Negative) Urine Ketones Negative (Negative) Urine Blood Negative /uL (Negative) Urine Nitrite Negative (Negative) Urine Bilirubin Negative (Negative) Urine Urobilinogen Normal mg/dL (Negative) Urine Leukocyte Esterase Negative /uL (Negative) Urine RBC <1 /hpf (0 - 4) Urine Microscopic WBC < 1 /HPF (0-5) Urine Squamous Epithelial Cells Few /hpf (<5) Urine Bacteria None seen /hpf (None Seen) Urine Glucose Normal mg/dL (Normal) Labs and/or images reviewed: Labs reviewed by me, Image(s) reviewed by me Assessment/Plan Assessment/Plan Impression: -probable gastroenteritis -nephrolithiasis, nonobstructive -obesity -primary hypertension -diabetes mellitus Plan: Events: Patient continues to have right lower quadrant pain. -IV fluids -GI consultation -antibiotic therapy with Flagyl -regular insulin sliding scale -pain management -Ultrasound of RLQ Total time spent with patient discussing and formulating plan of care: 35 minutes. This medical document was created using an electronic medical record system with [employer] dictation system. Although this document has been carefully reviewed, there may still be some phonetic and typographical errors. These areas are purely typographical due to imperfections of the software programs, and do not reflect any compromise in the patient's medical care. Plan discussed with: Patient, Other (RN) My Orders Orders - WILSON GOODEN NP Procedure Category Date Status Time * Gi D[facility] [employer] CONS 03/21/25 Transmitted 13:03 Right Lower Quad US 03/21/25 Logged 13:03 Date of Service: Mar 21, 2025 Billing Provider: WILSON GOODEN NP Common Visit Codes: [id number] INP/OBS CARE(HIGH) WILSON GOODEN NP Mar 21, 2025 13:28
--- NOTE | 2025-03-21 13:58 | DVH ---
INDICATION: rule ot appendicitis TECHNIQUE: Graded compression technique along with Multiple real-time sonographic images were obtain ed for evaluation of the right lower quadrant. FINDINGS: The appendix was not visualized. No free fluid or lymph nodes are seen on this exam. IMPRESSION: 1.Nonvisualization of the appendix, thus cannot exclude appendicitis.
[2025-03-21] MEDS: DOCUSATE SOD 100 MG CAP PO PRN (17:26)
[2025-03-22] VITALS (7 sets, daily range): BP systolic 125–148; BP diastolic 70–91; PULSE 61–72; RESP 18–20; TEMP 97.9–98.3; O2SAT 97–99
--- NOTE | 2025-03-22 13:36 | DVHPN2 ---
Subjective Patient continues to have right lower quadrant pain Reviewed: Care Plan, H&P, Labs, Medications Changes from previous H/P or p: No Changes General: Per HPI Eyes: No Pain, No Vision change, No Conjunctivae inflammation, No Eyelid inflammation, No Other, No Redness ENT: No Ear pain, No Ear discharge, No Nose pain, No Nose discharge, No Nose congestion, No Mouth pain, No Mouth swelling, No Throat pain, No Throat swelling, No Other Cardiovascular: No Chest Pain, No Palpitations, No Orthopnea, No Paroxysmal Noc. Dyspnea, No Edema, No Lt Headedness, No Other Respiratory: No Cough, No Dry, No Shortness of breath, No SOB with excertion, No Wheezing, No Hemoptysis, No Pleuritic Pain, No Sputum, No Other Gastrointestinal: No Nausea, No Vomiting; Abdominal Pain; No Diarrhea, No Constipation, No Melena, No Hematochezia, No Other Genitourinary: No Dysuria, No Frequency, No Incontinence, No Hematuria, No Retention, No Other Musculoskeletal: No other, No neck pain, No shoulder pain, No arm pain, No back pain, No hand pain, No leg pain, No foot pain Skin: No Rash, No Lesions, No Jaundice, No Bruising, No Other Objective Vitals Vital Signs Date Time Temp Pulse Resp B/P (MAP) Pulse Ox O2 Delivery O2 Flow Rate FiO2 03/22/25 08:00 18 99 Room Air* 0 21 03/22/25 05:00 98.2 69 126/70 (88) 98.2 Intake/Output Intake and Output 03/22/25 07:00 Intake Total 2230 ml Balance 2230 ml Intake Oral 2130 ml IV Total 100 ml # Voids 6 General Appearance: Alert, Oriented X3, Cooperative, mild distress HEENT: Atraumatic, PERRLA Cardiovascular: Normal S1, Normal S2 Abdomen: Normal bowel sounds, Soft, Other (Right lower Quadrant pain) Back: Flank Tenderness, Midline Tenderness Musculoskeletal: Normal sensory function, Normal motor function Neuro: Normal gait, Normal speech Skin: Dry, Intact Psych/Mental Status: Mental status NL, Mood NL Medications Current Medications Medications Dose Ordered Sig/Rob Route Start Time Stop Time Status Last Admin Dose Admin Sodium Chloride 10 ml Q8HR IV 03/20/25 06:00 03/22/25 06:35 10 ML Acetaminophen/ Hydrocodone Bitart 1 tab Q4HP PRN PO 03/20/25 05:15 03/22/25 11:11 1 TAB Ondansetron HCl 4 mg Q4HP PRN IV 03/20/25 05:15 Docusate Sodium 100 mg BIDPRN PRN PO 03/20/25 05:15 03/21/25 17:26 100 MG Acetaminophen 650 mg Q6HP PRN PO 03/20/25 05:15 Nitroglycerin 0.4 mg Q5MINP PRN SL 03/20/25 05:45 Morphine Sulfate 2 mg Q30M PRN IV 03/20/25 05:45 Sodium Chloride 1,000 ml @ 75 mls/hr [id number] IV 03/20/25 12:15 03/22/25 06:35 75 MLS/HR Metronidazole 100 ml @ 100 mls/hr Q8HR IV 03/20/25 14:00 03/22/25 06:34 100 MLS/HR Diagnostic Test (Pha) 1 strip ACHS 03/20/25 17:00 03/22/25 06:35 1 STRIP Insulin Human Regular ACHS SC 03/20/25 17:00 Dextrose 50 ml UD PRN IV 03/20/25 12:15 Laboratory Results Laboratory Tests 03/21/25 06:26 Urinalysis Test 03/20/25 05:15 Urine Color Light-yellow (Yellow) Urine Clarity Clear (Clear) Urine pH 6.0 (5.0-9.0) Urine Specific [place] 1.013 (1.001-1.035) Urine Protein Negative (Negative) Urine Ketones Negative (Negative) Urine Blood Negative /uL (Negative) Urine Nitrite Negative (Negative) Urine Bilirubin Negative (Negative) Urine Urobilinogen Normal mg/dL (Negative) Urine Leukocyte Esterase Negative /uL (Negative) Urine RBC <1 /hpf (0 - 4) Urine Microscopic WBC < 1 /HPF (0-5) Urine Squamous Epithelial Cells Few /hpf (<5) Urine Bacteria None seen /hpf (None Seen) Urine Glucose Normal mg/dL (Normal) Labs and/or images reviewed: Labs reviewed by me, Image(s) reviewed by me Assessment/Plan Assessment/Plan Impression: -probable gastroenteritis -nephrolithiasis, nonobstructive -obesity -primary hypertension -diabetes mellitus -Hx of DVT Plan: Events: Patient continues to have right lower quadrant pain. -IV fluids -GI consultation: Recommendations appreciated -DVT study -antibiotic therapy with Flagyl -regular insulin sliding scale -pain management -Ultrasound of RLQ: unremarkable for Appendicitis Total time spent with patient discussing and formulating plan of care: 35 minutes. This medical document was created using an electronic medical record system with [employer] dictation system. Although this document has been carefully reviewed, there may still be some phonetic and typographical errors. These areas are purely typographical due to imperfections of the software programs, and do not reflect any compromise in the patient's medical care. Plan discussed with: Patient, Other (RN) My Orders Orders - WILSON GOODEN NP Procedure Category Date Status Time Enoxaparin Sodium PHA 03/23/25 Verified (Lovenox) 10:00 Bilat Lower Dvt US 03/22/25 Verified 13:22 Date of Service: Mar 22, 2025 Billing Provider: WILSON GOODEN NP Common Visit Codes: [id number] INP/OBS CARE(HIGH) WILSON GOODEN NP Mar 22, 2025 13:36
[2025-03-22] MEDS ORDERED: OMNIPAQUE 12mg/ml 500ml ORAL SOLUTION PO ONE (13:55)
--- NOTE | 2025-03-22 13:55 | DVHINCON2 ---
GI Consult Consult Note GI consult note Date of Consultation: 03/22/2025 Chief Complaint: Abdominal pain to lower quadrants Referring Physician: Alexa YOON H&P: 59-year-old Upper Sorbian speaking patient admitted with complains of right lower quadrant abdominal pain for one-week. Patient describes the pain as a constant tightness type pain. No nausea or vomiting. Denies melena or red blood in stool. No colonoscopy in past Patient has been taking home medication Eliquis by herself which she has at her bedside. Patient is also on Lovenox Past Medical History: DM , HTN Past Surgical History: Social History: NO smoking, drinking ETOH and use of illegal drugs. Family History: Noncontributory Review of Systems: Constitutional: no fever, chill, weight loss HEENT: no eye pain, no hearing loss, no oral lesion, no scleral icterus Heart: no chest pain, no chest pressure Lung: no cough, no dyspnea with exertion Abdomen: see HPI Physical exam: General: NAD, AAOX3 Chest: lung whitt clear to auscultation Heart: RRR, no murmur Abdomen:+ right lower quadrant tenderness to palpation, +BS Labs: Labs Test 03/22/25 11:04 03/21/25 06:26 03/20/25 05:32 03/20/25 05:15 Range/Units POC Glucose 110 H 70-106 mg/dl White Blood Count 4.5 4.4-10.8 10^3/uL Red Blood Count 3.99 L 4.0-5.20 10^6/uL Hemoglobin 13.0 12.2-16.2 g/dL Hematocrit 38.2 36.0-46.0 % Mean Corpuscular Volume 95.8 80.0-100.0 fL Mean Corpuscular Hemoglobin 32.6 H 28.0-32.0 pg Mean Corpuscular Hemoglobin Concent 34.0 32.0-36.0 g/dL Red Cell Distribution Width 13.5 11.8-14.3 % Platelet Count 238 140-450 10^3/uL Mean Platelet Volume 8.4 6.9-10.8 fL Neutrophils (%) (Auto) 54.6 37.0-80.0 % Lymphocytes (%) (Auto) 37.9 10.0-50.0 % Monocytes (%) (Auto) 5.1 0.0-12.0 % Eosinophils (%) (Auto) 1.8 0.0-7.0 % Basophils (%) (Auto) 0.6 0.0-2.0 % Neutrophils # (Auto) 2.5 1.6-8.6 10 ^3/uL Lymphocytes # (Auto) 1.7 0.4-5.4 10 ^3/uL Monocytes # (Auto) 0.2 0-1.3 10 ^3/uL Eosinophils # (Auto) 0.1 0-0.8 10 ^3/uL Basophils # (Auto) 0 0-0.2 10 ^3/uL Nucleated Red Blood Cells 0.2 % Sodium Level 141 136-145 mmol/L Potassium Level 4.1 3.5-5.1 mmol/L Chloride Level 106 98-107 mmol/L Carbon Dioxide Level 24 20-31 mmol/L Anion Gap 11 5-15 Blood Urea Nitrogen 9 9-23 mg/dL Creatinine 0.87 # 0.550-1.02 mg/dL Glomerular Filtration Rate Calc 76 >90 mL/min BUN/Creatinine Ratio 10.3 10.0-20.0 Serum Glucose 86 74-106 mg/dL Calcium Level 9.2 8.7-10.4 mg/dL Total Bilirubin 1.5 H 0.2-1.0 mg/dL Aspartate Amino Transferase (AST) 26 13-40 U/L Alanine Aminotransferase (ALT) 10 7-40 U/L Alkaline Phosphatase 79 46-116 U/L Total Protein 7.4 5.7-8.2 g/dL Albumin 4.4 3.2-4.8 g/dL Hemoglobin A1c 5.6 <5.7 % A1C Urine Color Light-yellow Yellow Urine Clarity Clear Clear Urine pH 6.0 5.0-9.0 Urine Specific [place] 1.013 1.001-1.035 Urine Protein Negative Negative Urine Ketones Negative Negative Urine Blood Negative Negative /uL Urine Nitrite Negative Negative Urine Bilirubin Negative Negative Urine Urobilinogen Normal Negative mg/dL Urine Leukocyte Esterase Negative Negative /uL Urine RBC <1 0 - 4 /hpf Urine Microscopic WBC < 1 0-5 /HPF Urine Squamous Epithelial Cells Few <5 /hpf Urine Bacteria None seen None Seen /hpf Urine Glucose Normal Normal mg/dL Imaging: CT abdomen pelvis IMPRESSION: 1. No acute abdominopelvic abnormality. 2. Colonic diverticulosis without diverticulitis. 3. Nonobstructing renal calcifications. Appendix ultrasound IMPRESSION: 1.Nonvisualization of the appendix, thus cannot exclude appendicitis. Assessment: Abdominal pain History of DVT Plan: Discussed with Dr. Hartman CT abdomen pelvis with p.o. and IV contrast Notify Sydni WYATT regarding Eliquis at bedside Based on CT results would recommend possible colonoscopy or a surgical consult We will continue to monitor patient Thank you for this consult Date of Service: Mar 22, 2025 Billing Provider: SAMARA GAYLE Common Visit Codes: CONSULT ONLY Consultation Codes: [id number] CONSULT <60MIN SAMARA GAYLE Mar 22, 2025 13:55
--- NOTE | 2025-03-22 15:14 | DVH ---
Bilateral lower extremity venous duplex Clinical History: Hx of BLE DVT with recurrent right leg pain Comparison: None Findings: Duplex Doppler evaluation of the deep venous systems of both lower extremities from the common femora l veins to the popliteal veins including color Doppler and spectral/pulsed waveform analysis was perf ormed. RIGHT SIDE: The common femoral vein demonstrates appropriate compressibility and waveform variability. There is compressibility/patency of the great saphenous vein at the proximal thigh. The femoral vein demonstrates appropriate compressibility and waveform variability. The deep femoral vein demonstrates appropriate compressibility and waveform variability. The popliteal vein demonstrates appropriate compressibility and waveform variability. There is normal compressibility at the tibioperoneal trunk. LEFT SIDE: The common femoral vein demonstrates appropriate compressibility and waveform variability. There is compressibility/patency of the great saphenous vein at the proximal thigh. The femoral vein demonstrates appropriate compressibility and waveform variability. The deep femoral vein demonstrates appropriate compressibility and waveform variability. The popliteal vein demonstrates appropriate compressibility and waveform variability. There is normal compressibility at the tibioperoneal trunk. IMPRESSION: No right or left femoropopliteal venous thrombosis. No acute DVT. END IMPRESSION: If clinical concern/symptoms persist or worsen, short-interval follow-up study is suggested.
[2025-03-22] MEDS ORDERED: IOHEXOL 300 MG/ML 100ML BOTTLE IJ ONE (16:30)
--- NOTE | 2025-03-22 16:58 | DVH ---
Exam: CT CT ABD PELVIS W CON-ORAL IV History: RLQ abd pain COMPARISON: None Technique: Multidetector spiral CT of the abdomen and pelvis was performed from lung bases to pubic s ymphysis. Intravenous contrast was administered during this examination. Portal venous imaging was o btained. Axial, coronal and sagittal multiplanar reformats were performed by the technologist on a [employer] workstation. Radiation Dose : 1. Abdomen/Pelvis: CTDIvol 15.28 mGy, DLP 767.04 mGy*cm. CONTRAST: Type of contrast: Omnipaque 350 Contrast injected: 100 ml Findings: Lung Bases: No acute or significant lung base finding. Normal heart size. No pleural or pericardial effusion. Liver: The liver is normal in size. No focal lesions. Normal hepatic vascular enhancement. Gallbladder and biliary Tree: Unremarkable Spleen: Unremarkable Pancreas: The pancreas is normal in appearance without focal lesions or abnormal enhancement. Adrenal Glands: Unremarkable Kidneys: No hydronephrosis. Bladder: Unremarkable Bowel: The stomach is grossly normal in appearance. Small bowel and colon are normal in caliber and d istribution. Normal appendix is visualized in the right lower quadrant without findings of appendicit is. Ascites: Absent Lymphadenopathy: No mesenteric, retroperitoneal or periportal lymphadenopathy. Abdominal wall and Mesentery: Unremarkable. Vasculature: The visualized abdominal aorta is normal in size and caliber. Abdominal and pelvic vess els demonstrate normal enhancement. Pelvic Organs: Unremarkable Musculoskeletal: No aggressive focal bony lesions, acute fractures or dislocation. IMPRESSION: No acute abdominal or pelvic finding. Radiation optimization: All CT scans at this facility use at least one of these dose optimization kishor hniques: automated exposure control mA and/or kV adjustment per patient size (includes targeted exam s where dose is matched to clinical indication) or iterative reconstruction.
--- NOTE | 2025-03-22 22:04 | DVHPN2 ---
Progress Note - Dictate Date Seen: Mar 22, 2025 Medical Necessity Reason Pt with a Central, PICC or Fol: No Subjective Patient was seen at bedside this evening at 5:00 p.m. Patient complains of right lower quadrant pain There was no GI bleeding No prior colonoscopy vital signs Vital Sign Date Time Temp Pulse Resp B/P (MAP) Pulse Ox O2 Delivery O2 Flow Rate FiO2 03/22/25 17:00 97.9 66 20 133/75 (94) 99 97.9 03/22/25 08:00 Room Air* 0 21 Total Intake and Output 03/21/25 03/21/25 03/22/25 15:00 23:00 07:00 Intake Total 1300 ml 930 ml Balance 1300 ml 930 ml medications Current Medications Medications Dose Ordered Sig/Rob Route Start Time Stop Time Status Last Admin Dose Admin Sodium Chloride 10 ml Q8HR IV 03/20/25 06:00 03/22/25 15:28 10 ML Acetaminophen/ Hydrocodone Bitart 1 tab Q4HP PRN PO 03/20/25 05:15 03/22/25 11:11 1 TAB Ondansetron HCl 4 mg Q4HP PRN IV 03/20/25 05:15 Docusate Sodium 100 mg BIDPRN PRN PO 03/20/25 05:15 03/21/25 17:26 100 MG Acetaminophen 650 mg Q6HP PRN PO 03/20/25 05:15 Nitroglycerin 0.4 mg Q5MINP PRN SL 03/20/25 05:45 Morphine Sulfate 2 mg Q30M PRN IV 03/20/25 05:45 Sodium Chloride 1,000 ml @ 75 mls/hr [id number] IV 03/20/25 12:15 03/22/25 18:21 75 MLS/HR Metronidazole 100 ml @ 100 mls/hr Q8HR IV 03/20/25 14:00 03/22/25 15:27 100 MLS/HR Diagnostic Test (Pha) 1 strip ACHS 03/20/25 17:00 03/22/25 06:35 1 STRIP Insulin Human Regular ACHS SC 03/20/25 17:00 Dextrose 50 ml UD PRN IV 03/20/25 12:15 Enoxaparin Sodium 40 mg DAILY SC 03/23/25 10:00 objective General: NAD, AAOX3 Chest: lung whitt clear to auscultation Heart: RRR, no murmur Abdomen:+ right lower quadrant tenderness to palpation, +BS laboratory and microbiology Laboratory Tests 03/21/25 06:26 Test 03/21/25 06:26 Range/Units Serum Glucose 86 74-106 mg/dL ABD PELVIC CT SCAN WITH ORAL AND IV CONTRAST NEGATIVE Problems(with codes): (1) Acute abdominal pain (2) Kidney stone Prognosis PLAN I DISCUSSED THE OPTION OF A POSSIBLE COLONOSCOPY IF THE CT SCAN WAS NEGATIVE FOR ANY APPENDICITIS PATIENT WAS AGREEABLE AND ORDERS HAVE BEEN PUT IN FOR A BOWEL PREP WITH POSSIBLE COLONOSCOPY TOMORROW IF THE PATIENT IS NOT ABLE TO DO THE BOWEL PREP OR GET A COLONOSCOPY AN INPATIENT THEN I WILL ARRANGING ELECTIVELY AN OUTPATIENT Plan discussed with: Patient, Other (SAMARA GAYLE) REMA THURMAN MD Mar 22, 2025 22:04
[2025-03-22] MEDS: GOLYTELY 4L KIT PO ONE (22:12)
[2025-03-23] VITALS (9 sets, daily range): BP systolic 109–153; BP diastolic 58–90; PULSE 60–79; RESP 16–19; TEMP 36.4; O2SAT 96–99
[2025-03-23] MEDS: MAGNESIUM CITRATE SOLUTION 300 ML BTL PO ONE (06:06)
[2025-03-23] MEDS: GOLYTELY 4L KIT PO ONE (06:06)
[2025-03-23] MEDS ORDERED: ENOXAPARIN SOD 40 MG/0.4 ML SYRINGE SC SCH (10:00)
[2025-03-23] MEDS ORDERED: ONDANSETRON HCL 4 MG/2 ML VIAL ONE (12:01)
[2025-03-23] MEDS ORDERED: LIDOCAINE 2% (LOCAL ANESTH.) PF 5ml SDV ONE (12:01)
[2025-03-23] MEDS ORDERED: PROPOFOL 10 MG/ML 20 ML IV ONE (12:01)
[2025-03-23] MEDS ORDERED: METOCLOPRAMIDE HCL 5MG/ml INJ 2ml VIAL ONE (12:01)
--- NOTE | 2025-03-23 12:29 | DVHOP2 ---
Operative Report DATE OF OPERATION: 03/23/25 PROCEDURE: Colonoscopy WITH COLD BIOPSY. PREOPERATIVE INDICATION: The patient is a 59 -year-old female undergoing colonoscopy for colon cancer screening and evaluation of persistent right lower quadrant pain POSTOPERATIVE DIAGNOSES: 1. Moderate sigmoid diverticular disease with sigmoid muscular hypertrophy 2. A tiny 2 mm benign-appearing proximal transverse colon polyp was seen and removed by cold biopsy forceps 3. 1+ internal external hemorrhoids with grade 1 prolapse of the hemorrhoids 4. Otherwise completely normal colonoscopy examination up to the cecum and terminal ileum PROCEDURE PERFORMED BY: Rema Hartman M.D. SCOPE: Olympus videocolonoscope. ASA CLASS: 2. PREOPERATIVE MEDICATIONS: Mac sedation, Octavio arias PROCEDURE IN DETAIL: After obtaining an informed consent, the patient was placed on left lateral decubitus position. She was then sedated with the above medications. A rectal examination was performed that was normal. The colonoscope was then passed through the anus into the rectosigmoid and through the descending, transverse, and ascending colon up to the cecum with visualization of the appendiceal orifice, base of the cecum and the ileocecal valve. The colonoscope was then withdrawn. The distal 5-10 cm of the terminal ileum were normal The appendiceal orifice was normal. No masses or colitis were seen. Patient had mild to moderate sigmoid diverticular disease Patient had a 1-2 mm benign-appearing hyperplastic type transverse colon polyp that was seen and removed by cold biopsy forceps On retroflexion and straight on view the patient had 1+ internal external hemorrhoids with grade 1 prolapse of the hemorrhoids The patient tolerated the procedure well without difficulty. WITHDRAWAL TIME: 7 minutes QUALITY OF THE PREP: [place] Bowel Prep score: 9. COMPLICATIONS : None SPECIMENS: Tiny transverse colon polyp DISPOSITION: Transfer back to the floor Stable PLAN: 1. Repeat colonoscopy base on biopsy result likely in 7-10 years 2. Resume GI soft diet advance as tolerated 3. Patient is cleared for discharge from GI point of view 4. Patient's right lower quadrant pain may be musculoskeletal in origin, continue observation and outpatient follow up in GI clinic in 2-4 weeks after discharge REMA HARTMAN MD Mar 23, 2025 12:29
--- NOTE | 2025-03-23 15:34 | DVHDS2 ---
Discharge Summary Date of Admission Mar 20, 2025 at 05:35 Date of Discharge: Mar 23, 2025 Admitting Diagnosis Acute abdominal pain Labs/Diagnostic Data: Laboratory Results Test 03/23/25 06:14 03/21/25 06:26 03/20/25 05:32 03/20/25 05:15 POC Glucose 106 mg/dl (70-106) White Blood Count 4.5 10^3/uL (4.4-10.8) Red Blood Count 3.99 10^6/uL (4.0-5.20) Hemoglobin 13.0 g/dL (12.2-16.2) Hematocrit 38.2 % (36.0-46.0) Mean Corpuscular Volume 95.8 fL (80.0-100.0) Mean Corpuscular Hemoglobin 32.6 pg (28.0-32.0) Mean Corpuscular Hemoglobin Concent 34.0 g/dL (32.0-36.0) Red Cell Distribution Width 13.5 % (11.8-14.3) Platelet Count 238 10^3/uL (140-450) Mean Platelet Volume 8.4 fL (6.9-10.8) Neutrophils (%) (Auto) 54.6 % (37.0-80.0) Lymphocytes (%) (Auto) 37.9 % (10.0-50.0) Monocytes (%) (Auto) 5.1 % (0.0-12.0) Eosinophils (%) (Auto) 1.8 % (0.0-7.0) Basophils (%) (Auto) 0.6 % (0.0-2.0) Neutrophils # (Auto) 2.5 10 ^3/uL (1.6-8.6) Lymphocytes # (Auto) 1.7 10 ^3/uL (0.4-5.4) Monocytes # (Auto) 0.2 10 ^3/uL (0-1.3) Eosinophils # (Auto) 0.1 10 ^3/uL (0-0.8) Basophils # (Auto) 0 10 ^3/uL (0-0.2) Nucleated Red Blood Cells 0.2 % Sodium Level 141 mmol/L (136-145) Potassium Level 4.1 mmol/L (3.5-5.1) Chloride Level 106 mmol/L (98-107) Carbon Dioxide Level 24 mmol/L (20-31) Anion Gap 11 (5-15) Blood Urea Nitrogen 9 mg/dL (9-23) Creatinine 0.87 mg/dL (0.550-1.02) Glomerular Filtration Rate Calc 76 mL/min (>90) BUN/Creatinine Ratio 10.3 (10.0-20.0) Serum Glucose 86 mg/dL (74-106) Calcium Level 9.2 mg/dL (8.7-10.4) Total Bilirubin 1.5 mg/dL (0.2-1.0) Aspartate Amino Transferase (AST) 26 U/L (13-40) Alanine Aminotransferase (ALT) 10 U/L (7-40) Alkaline Phosphatase 79 U/L (46-116) Total Protein 7.4 g/dL (5.7-8.2) Albumin 4.4 g/dL (3.2-4.8) Hemoglobin A1c 5.6 % A1C (<5.7) Urine Color Light-yellow (Yellow) Urine Clarity Clear (Clear) Urine pH 6.0 (5.0-9.0) Urine Specific [place] 1.013 (1.001-1.035) Urine Protein Negative (Negative) Urine Ketones Negative (Negative) Urine Blood Negative /uL (Negative) Urine Nitrite Negative (Negative) Urine Bilirubin Negative (Negative) Urine Urobilinogen Normal mg/dL (Negative) Urine Leukocyte Esterase Negative /uL (Negative) Urine RBC <1 /hpf (0 - 4) Urine Microscopic WBC < 1 /HPF (0-5) Urine Squamous Epithelial Cells Few /hpf (<5) Urine Bacteria None seen /hpf (None Seen) Urine Glucose Normal mg/dL (Normal) Other Laboratory Tests 03/21/25 06:26 Brief Hx & Hospital Course: History of Present Illness The patient is a 59-year-old female morbidly obese with past medical history of diabetes mellitus and hypertension who presented to [facility] ED with complaint of abdominal pain. Patient reports she has been experiencing right lower quadrant abdominal pain for the past 3 days, rating 7/10 numeric scale, nonradiating, getting worse that prompted this visit. Patient was seen and evaluated in the ED, laboratory data shows WBC 6.6, platelets 238, sodium 142, potassium 4.3, BUN 15, creatinine 0.66, glucose 95, calcium 9.7, blood pressure 148/78, heart rate 76, temperature 98.3 F, O2 saturation 99% on room air. Abdomen/pelvis CT showed no acute abdominopelvic abnormality, colonic diverticulosis without diverticulitis. Please see medication orders section in the computer. On my assessment, patient denies abdominal pain at this moment, no diarrhea, nausea, vomiting, no fever, no chills. Patient was admitted for further evaluation and medical management. Course of hospitalization: Patient has CT scan of the abdomen and pelvis which was essentially negative. She continued to complain of right lower quadrant pain. Right lower quadrant ultrasound was performed which was not remarkable for appendicitis. GI consultation was obtained. Patient had 2nd CT scan with IV contrast which was unremarkable. Patient had colonoscopy today, with no acute findings. This was discussed with the patient, in his agreeable to be discharged home and follow up with her PCP in 1-2 weeks. She will continue all previous home medications. All questions answered. Physical examination General: Alert and Oriented x3. No acute distress. Well-nourished. Obese Eyes: EOMI. Anicteric. HENT: Moist mucous membranes. Lungs: Clear to auscultation bilaterally. No accessory muscle use. Cardiovascular: Regular rate and rhythm. No murmur. No JVD. Abdomen: Soft, non-tender and non-distended. No palpable masses. Extremities: No edema. Non-tender. Skin: No rashes or lesions. Warm. Neurologic: No focal neurological deficits. CN II-XII grossly intact, but not individually tested. Psychiatric: Cooperative. Appropriate mood and affect. Total time spent with patient discussing and formulating plan of care: 35 minutes. This medical document was created using an electronic medical record system with [employer] dictation system. Although this document has been carefully reviewed, there may still be some phonetic and typographical errors. These areas are purely typographical due to imperfections of the software programs, and do not reflect any compromise in the patient's medical care. Consults/Reason for consult Gastroenterology: Persistent abdominal pain Condition at Discharge: Fair Final Diagnosis/Problems List Abdominal pain -probable gastroenteritis -nephrolithiasis, nonobstructive -obesity -primary hypertension -diabetes mellitus -Hx of DVT Discharge Disposition: Home Discharge Instruct/Medications Diet: Regular Activity: No Restrictions, As Tolerated Follow Up/Referral: Follow up with PCP in 1-2 Medications: Continue all previous home medication Scheduled Apixaban Base (Eliquis), 1 TAB PO BID, (Reported) Atorvastatin Calcium (Atorvastatin Calcium), 1 TAB PO DAILY, (Reported) Metformin Hydrochloride (Metformin Hcl), 1 PO DAILY, (Reported) 36 Discharge Statement: "Patient was advised to return to the ER or call 911 if any headaches, dizziness, shortness of breath, chest pain, abdominal pain, bleeding, fevers, or worsening of medical condition. Patient was counseled about treatment plan, medications, possible side effects, patientverbalized understanding. All questions were answered to the best of my ability. This discharge took greater then 30 minutes in planning, reviewing documentation, counseling the patient, and discussing with other team members." ASSESSMENT ASSESSMENT Assessment Abdominal pain Date of Service: Mar 23, 2025 Billing Provider: WILSON GOODEN NP Common Visit Codes: 82523-YNW/OBS DISCH DAY >30min WILSON GOODEN NP Mar 23, 2025 15:34
== END 2025-03-23 19:05 | disposition home or self-care (01) | DRG 465 ==
LOC: ER 23:14 → OVERFLOW 03-20 05:35 → EAST 03-20 15:38
PROVIDERS: ADMIT Nurse Practitioner Acute Care; ATTEND Nurse Practitioner Acute Care
PROC: 0DBL8ZZ Excision of Transverse Colon, Via Natural or Artificial Opening Endoscopic (ICD-10-PCS; principal; 2025-03-23 11:59)
DX: N20.0 Calculus of kidney (principal); E11.9 Type 2 diabetes mellitus without complications; K57.30 Diverticulosis of large intestine without perforation or abscess without bleeding; N28.89 Other specified disorders of kidney and ureter; K64.8 Other hemorrhoids; K63.5 Polyp of colon; E66.9 Obesity, unspecified; K64.4 Residual hemorrhoidal skin tags; I10 Essential (primary) hypertension; E66.01 Morbid (severe) obesity due to excess calories; K52.89 Other specified noninfective gastroenteritis and colitis; M62.89 Other specified disorders of muscle; Z79.899 Other long term (current) drug therapy; Z68.35 Body mass index [BMI] 35.0-35.9, adult
CPT/HCPCS: 36415; 45380; 74176; 74177; 76705; 80053; 81001; 82962; 83036; 85025; 93970; 96365; 96375; G0378; J2003; J2405; J2704; J3490

== ENCOUNTER 2025-04-06 20:59 | Emergency (ER) | payer MEDICAID ==
[~2025-04-06] VITALS: Ht 157.5 cm; Wt 89.0 kg
[~2025-04-06 20:59] MED LIST changes: -AMOX875T4 PO; +APIX5TAB PO; +ATOR40TA52 PO; -BACDST PO; -HYDR-4902 PO; +METF-371 PO; -PHEN-922 PO
[2025-04-06 21:03] VITALS: BP 154/98; PULSE 86; RESP 18; TEMP 98.2; O2SAT 80
--- NOTE | 2025-04-06 21:38 | DVH ---
EXAM: CT HEAD WITHOUT CONTRAST INDICATION: HEAD INJURY ON ELOQUIST TECHNIQUE: CT of the head without intravenous contrast. Radiation Dose : 1. Head: CT Dose: CTDI volume is 54.45 mGy. Dose-length product is 964.14 mGy*cm The dose indicators for CT are the volume Computed Tomography (CT) Dose Index (CTDIvol) and the Dose Length Product (DLP), and are measured in units of mGy and mGy-cm, respectively. These indicators are not patient dose, but values generated from the CT scanner acquisition factors. The report includes radiation exposure data for exposures received during this examination. COMPARISON: CT HEAD WITHOUT CONTRAST on DOS: 06/21/23 FINDINGS: Motion artifact degrades fine detail. No acute territorial infarct, intracranial hemorrhage, or mass effect. There are global involutional changes with compensatory prominence of the ventricles and sulci. The orbits are normal. The paranasal sinuses and mastoid air cells are clear. The osseous structures are unremarkable. IMPRESSION: 1. No acute territorial infarct, intracranial hemorrhage, or mass effect. 2. Age-related involutional changes. Radiation optimization: All CT scans at this facility use at least one of these dose optimization kishor hniques: automated exposure control mA and/or kV adjustment per patient size (includes targeted exam s where dose is matched to clinical indication) or iterative reconstruction.
--- NOTE | 2025-04-06 21:54 | ED.PDOC ---
History of Present Illness HPI Comments 59 year old female presents to the ED with a chief complaint of head injury onset today (04/06/25). Patient states she went to a dentist, sat on a chair with a recliner back, fell from a chair, fell backwards, hit the back of her head on the chair, landed on tile floor. She is currently experiencing headache, neck pain, dizziness. She is currently on Eliquis. PMHx HTN, DM. Denies LOC, nausea, vomiting, abdominal pain, chest pain,shortness of breath, numbness/tingling, fever, chills, weakness, confusion. No other symptoms or modifying factors present at this time. Chief Complaint: Head Injury Time Seen by MD: 21:50 Primary Care Provider: JULIA Lepe Notes: Medications, Allergies Allergies: Coded Allergies: No Known Drug Allergy (Verified Allergy, Unknown, 01/27/18) Home Meds Reported Medications Apixaban Base (ELIQUIS) 5 Mg Tab, 1 TAB PO BID 03/20/25 Atorvastatin Calcium (ATORVASTATIN CALCIUM) 40 Mg Tab, 1 TAB PO DAILY 03/20/25 Metformin Hydrochloride (Metformin Hcl) 850 Mg Tab, 1 PO DAILY 03/20/25 Information Source: Patient Mode of Arrival: Ambulatory Severity: Moderate Timing: Hours Duration: Since onset Prehospital treatment: None Vital Signs Vital Signs Date Time Temp Pulse Resp B/P (MAP) Pulse Ox O2 Delivery O2 Flow Rate FiO2 04/06/25 21:03 98.2 86 18 154/98 80 98.2 Physical Exam PHYSICAL EXAM: General: Awake, alert and oriented. No acute distress. Skin: Skin in warm, dry and intact without rashes or lesions. HEENT: The head is normocephalic and atraumatic. Conjunctivae are clear without exudates or hemorrhage. Sclera is non-icteric. Neck: Painful range of motion. No JVD. Positive C-spine midline tenderness Cardiac: Regular rate Respiratory: No signs of respiratory distress. No Stridor. Extremities: Upper and lower extremities are atraumatic in appearance without deformity. Neurological: The patient is awake, alert and oriented to person, place, and time with normal speech. Speech is clear. There is no facial asymmetry. Normal strength. Psychiatric: Appropriate mood and affect. Good judgement and insight. 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 Was a procedure done?: No Differential Dx Considerations may include: Differential diagnoses considered include but are not limited to skull fracture, temporal arteritis, acute angle closure glaucoma, encephalitis, bacterial meningitis, carbon monoxide poisoning, posttraumatic headache, SAH, subdural hematoma, cervical artery dissection, venous sinus thrombosis, CVA, migraine headache, cluster headache, tension headache, TMJ disorder, frontal sinusitis, cervical spondylosis, intracranial mass, pituitary apoplexy. X-Ray, Labs, Meds, VS Vital Signs Date Time Temp Pulse Resp B/P (MAP) Pulse Ox O2 Delivery O2 Flow Rate FiO2 04/06/25 21:03 98.2 86 18 154/98 80 98.2 [place] [address] Ph: [phone] DIAGNOSTIC IMAGING Diagnostic Imaging Report : [id number] Signed PATIENT: KAISER VAZQUEZ ACCT: [id number] UNIT: [id number] : 1965 LOC: ER ROOM / BED: / AGE / SEX: 59 / F ADM STATUS: REG ER SERVICE 08 ORDERING PHYSICIAN: JOSIE NAYLOR MD PROCEDURE(s): HWOCT - HEAD WITHOUT CONTRAST REASON: HEAD INJURY ON ELOQUIST ORDER NUMBER(s): [id number], ACCESSION NUMBER(s): [id number] EXAM: CT HEAD WITHOUT CONTRAST INDICATION: HEAD INJURY ON ELOQUIST TECHNIQUE: CT of the head without intravenous contrast. Radiation Dose : 1. Head: CT Dose: CTDI volume is 54.45 mGy. Dose-length product is 964.14 mGy*cm The dose indicators for CT are the volume Computed Tomography (CT) Dose Index (CTDIvol) and the Dose Length Product (DLP), and are measured in units of mGy and mGy-cm, respectively. These indicators are not patient dose, but values generated from the CT scanner acquisition factors. The report includes radiation exposure data for exposures received during this examination. COMPARISON: CT HEAD WITHOUT CONTRAST on DOS: 06/21/23 FINDINGS: Motion artifact degrades fine detail. No acute territorial infarct, intracranial hemorrhage, or mass effect. There are global involutional changes with compensatory prominence of the ventricles and sulci. The orbits are normal. The paranasal sinuses and mastoid air cells are clear. The osseous structures are unremarkable. IMPRESSION: 1. No acute territorial infarct, intracranial hemorrhage, or mass effect. 2. Age-related involutional changes. Radiation optimization: All CT scans at this facility use at least one of these dose optimization techniques: automated exposure control mA and/or kV adjust ment per patient size (includes targeted exams where dose is matched to clinical indication) or iterative reconstruction. ATED BY: MONIKA RESENDEZ MD DICTATED DATE/TIME: 04/06/252135 SIGNED BY: MONIKA RESENDEZ MD SIGNED DATE/TIME: 04/06/252135 CC: [place] [address] Ph: [phone] DIAGNOSTIC IMAGING Diagnostic Imaging Report : [id number] Signed PATIENT: KAISER VAZQUEZ ACCT: [id number] UNIT: [id number] : 1965 LOC: ER ROOM / BED: / AGE / SEX: 59 / F ADM STATUS: REG ER SERVICE 53 ORDERING PHYSICIAN: RENE HERNANDEZ MD PROCEDURE(s): CS2 - CERVICAL WITHOUT CONTRAST REASON: fall neck injury ORDER NUMBER(s): [id number], ACCESSION NUMBER(s): [id number] EXAM: CT CERVICAL WITHOUT CONTRAST INDICATION: fall neck injury EXAM DATE: 04/06/2025 09:58 PM COMPARISON: CT HEAD WITHOUT CONTRAST on DOS: 04/06/25, CT HEAD WITHOUT CONTRAST on DOS: 06/21/23 TECHNIQUE: Multiple axial CT images of the cervical spine were obtained using bone algorithm. Axial and coronal reformatting was done. Bone and soft tissue windows were reviewed. Radiation Dose Information: CT Dose: CTDI volume is 23.43 mGy. Dose-length product is 1.78 mGy*cm FINDINGS: The cervical alignment is intact. No acute cervical spine fracture is identified. The vertebral body heights are intact. No suspicious osseous lesions are identified. No significant degenerative changes are identified. There is no prevertebral soft tissue swelling. IMPRESSION: 1. No evidence of acute cervical spine fracture or traumatic malalignment. All CT scans at this medical facility are performed using dose modulation techniques as appropriate to a performed exam including the following: Automated exposure control was utilized; adjustment of the MA and/or KV according to patient size; and use of iterative reconstruction technique. ATED BY: KEYON RIVERS MD DICTATED DATE/TIME: 04/06/252241 SIGNED BY: KEYON RIVERS MD SIGNED DATE/TIME: 04/06/252241 CC: Time of 1ST Reevaluation: 22:20 Reevaluation 1ST: Unchanged ( ) Patient Education/Counseling: Diagnosis, Treatment, Need For Follow Up Family Education/Counseling: No Family Present SEPSIS Sepsis Screen Date sepsis recognized/suspect: Apr 06, 2025 Time Sepsis recognized/suspect: 2106 Recent Procedure: No On Antibiotic Therapy: No Respiratory Rate >20: No Heart Rate >90: No Temp<36 C (96.8 F) or >38.3 C: No SBP <90 or MAP <65 mmHG: No New Acute Mental Status Change: No Is the patient on CPAP, BIPAP,: No Physician Orders Head Without Contrast (04/06/25 21:09) Cervical Without Contrast (04/06/25 21:54) Vital Signs Date Time Temp Pulse Resp B/P (MAP) Pulse Ox O2 Delivery O2 Flow Rate FiO2 04/06/25 21:03 98.2 86 18 154/98 80 98.2 Departure 1 Departure Time of Disposition: 00:32 Impression: Primary Impression: Head injury Additional Impression: Neck pain Disposition: HOME / SELF CARE / HOMELESS Condition: Good Additional Instructions: INSTRUCCIONES DE MICHELE DE Urgencias Instrucciones: Julia atentamente todas las instrucciones proporcionadas en salvador paquete. Aunque le hayan dado el michele del Departamento de Emergencias, esto no significa que tenga un "certificado de buena rafiq". Hoy no se ascencio realizado ningn diagnstico definitivo para reg sntomas. Es posible que ests en proceso de desarrollar carolina enfermedad grave. Es por eso que debe regresar al servicio de urgencias sin falta si presenta algn sntoma nuevo o que empeora (especialmente si reg sntomas incluyen dolor en el pecho, dificultad para respirar, dolor abdominal, fiebre, dolor de alivia, confusin, dificultad para janelle o caminar). Justin es muy importante que consulte a un mdico de atencin primaria dentro de los prximos 3 a 5 sandra para realizar un seguimiento. Si no puede conseguir carolina ortiz, regrese al servicio de urgencias para carolina nueva evaluacin. Lesin en la alivia: Instrucciones de cuidado Descripcin general La mayora de las lesiones en la alivia son leves. Los golpes, cuenca y raspaduras en la alivia y la aren suelen cicatrizar keysha y pueden tratarse igual que las lesiones en otras partes del cuerpo. Aunque es poco frecuente, de vez en cuando surge un problema ms grave despus de llegar a casa. Por eso, conviene estar atento a los sntomas jimenez justyna o dos sandra. El seguimiento es fundamental para felder tratamiento y seguridad. Asegrese de programar y acudir a todas reg citas, y llame a felder mdico si tiene algn problema. Justin es recomendable estar al tanto de los resultados de reg pruebas y llevar carolina lista de los medicamentos que beatris. Director Of Slot Operations puedes cuidarte en casa? Siga las instrucciones de felder mdico. El mdico le indicar si necesita que alguien lo vigile de cerca jimenez las prximas 24 horas o ms. Tmatelo con calma jimenez los prximos sandra o ms si no te sientes keysha. Pregntele a felder mdico cundo puede volver a realizar actividades angel luis conducir un automvil, andar en bicicleta u operar maquinaria. Cundo debes pedir ayuda? Llame al 911 en cualquier momento que considere que necesita atencin de emergencia. Por ejemplo, llame si: Tienes carolina convulsin. Te desmayaste (perdiste el conocimiento). Ests confundido o no puedes mantenerte despierto. Tienes un dolor de alivia que empeora y no desaparece. Tiene nuevos cambios en la visin o carolina pupila (la parte adebayo en el medio del abdoulaye) es ms ben que la otra. Tiene dificultad para hablar, problemas de equilibrio o disminucin de la coordinacin. Llame a felder mdico ahora o busque atencin mdica inmediata si: Tiene vmitos nuevos o peores. Te sientes menos alerta. Tienes nueva debilidad o entumecimiento en alguna parte de tu cuerpo. Tiene sntomas nuevos, angel luis pensamiento confuso o cambios de humor. Preste atencin a los cambios en felder rafiq y asegrese de comunicarse con felder mdico si: No mejoras angel luis esperabas Crditos por lesin en la alivia: Instrucciones de cuidado Actualizado al: 3 de iembre 2023 Autor: Personal de [facility] Junta de revisin clnica Toda la educacin de [facility] es revisada por un equipo que in cluye mdicos, enfermeras, profesionales avanzados, dietistas registrados y otros profesionales de la rafiq. e-Prescriptions Acetaminophen (Acetaminophen Er) 650 Mg Tab 650 MG PO TIDPRN PRN, #15 TAB Prov: RENE HERNANDEZ MD 04/07/25 Comments MDM: 59-year-old female who presents with a head injury. No focal neurological symptoms. Neuro exam is benign. Pt is nontoxic. VSS. Neuro imaging negative. Based on history and normal neurological exam I have low suspicion for skull fracture, intracranial tumor, intracranial bleed, meningitis, temporal arteritis, glaucoma, CO poisoning. Most likely patient has benign headache, recommend rest, hydration, and OTC pain control. I reviewed the following notes from the pt's past medical encounters: N/A The following tests were ordered, and results were reviewed by me: (See diagnostic results section) I discussed treatments and results with patient Decision regarding hospitalization or escalation of hospital level of care: Risks and benefits of admission for further treatment of patient's condition was considered however due to patient's stable condition patient will be discharged to follow up closely or return to care for worsening of condition or inability to follow up. Critical Care Note Critical Care Time?: No Stability Stability form required: No Heart Score Heart Score: Heart Score Response (Comments) Value History N/A 0 EKG N/A 0 Age N/A 0 Risk Factors N/A 0 Troponin N/A 0 Total 0 I personally scribed for RENE HERNANDEZ MD ([email or web address]) on 04/06/25 at 21:54. Electronically submitted by Gi Aguilera ([email or web address]). I personally scribed for RENE HERNANDEZ MD ([email or web address]) on 04/06/25 at 23:19. Electronically submitted by Gi Aguilera ([email or web address]). RENE HERNANDEZ MD Apr 06, 2025 21:54
[2025-04-06] MEDS ORDERED: ACETAMINOPHEN 500 MG TAB or CAP PO ONE (22:00)
--- NOTE | 2025-04-06 22:44 | DVH ---
EXAM: CT CERVICAL WITHOUT CONTRAST INDICATION: fall neck injury EXAM DATE: 04/06/2025 09:58 PM COMPARISON: CT HEAD WITHOUT CONTRAST on DOS: 04/06/25, CT HEAD WITHOUT CONTRAST on DOS: 06/21/23 TECHNIQUE: Multiple axial CT images of the cervical spine were obtained using bone algorithm. Axial a nd coronal reformatting was done. Bone and soft tissue windows were reviewed. Radiation Dose Information: CT Dose: CTDI volume is 23.43 mGy. Dose-length product is 1.78 mGy*cm FINDINGS: The cervical alignment is intact. No acute cervical spine fracture is identified. The vertebral body heights are intact. No suspicious osseous lesions are identified. No significant degenerative changes are identified. There is no prevertebral soft tissue swelling. IMPRESSION: 1. No evidence of acute cervical spine fracture or traumatic malalignment. All CT scans at this medical facility are performed using dose modulation techniques as appropriate t o a performed exam including the following: Automated exposure control was utilized; adjustment of th e MA and/or KV according to patient size; and use of iterative reconstruction technique.
[2025-04-07] MEDS ORDERED: ACET650T12 PO (00:33)
== END 2025-04-07 00:34 | disposition home or self-care (01) ==
LOC: ER 20:59
DX: S09.8XXA Other specified injuries of head, initial encounter (principal); S19.9XXA Unspecified injury of neck, initial encounter; W07.XXXA Fall from chair, initial encounter; I10 Essential (primary) hypertension; E11.9 Type 2 diabetes mellitus without complications; Y93.89 Activity, other specified; Y92.89 Other specified places as the place of occurrence of the external cause; Y99.8 Other external cause status
CPT/HCPCS: 70450; 72125